=== PATIENT | female | born 1990 | race Hispanic/Latino ===

== ENCOUNTER 2022-05-07 12:24 | Emergency (ER) | payer OTHER ==
--- OUTSIDE RECORDS SUMMARY | 2022-05-07 12:27 | XMS REPORT | Continuity of Care Document ---
:1990 Author Organization [facility] t Address [address] [place] [address] Care Team Providers Name Role Phone HALI FOX Primary Care Physician Unavailable ELIZABETH FABIAN Attending Clinician Unavailable Enco Hsieh Attending Clinician Elizabeth Fabian PA-C Attending Clinician ENOC RAMIREZ Attending Clinician Unavailable Doctor Unassigned, [place] Attending Clinician Unavailable Beatriz Jin MD Attending Clinician Res-Colpo/Leep, [facility] Attending Clinician Unavailable Columba Short MD Attending Clinician COLUMBA SHORT Attending Clinician Unavailable HALI FOX Attending Clinician Unavailable Payers Payer Name Policy Type Policy Number Effective Date Expiration Date S liam [employer] [id number] 2022 2022 ELSI 101-150% 00:00:00 00:00:00 Problems Condition Condition Condition Status Onset Resolution Last Treating Co mments Source Name Details Category Date Date Treatment Clinician Date 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 03-31 ity of cell cell 00:00: [place] changes of changes of 00 Me dical undetermin undetermin Br anch ed ed significan significan ce (ASCUS) ce (ASCUS) on on cervical cervical cytology cytology with with positive positive high risk 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) Other Other Disease Active Univers general general 1-07 [place] of counseling [place] advice and advice 00 Me dical for for Branch contracept contracept chio chio management management Well woman Well woman Disease Active 2018-03 U nivers exam exam 0-02 ity of 00:00: [address] Branch Anemia, Anemia, Disease Active Univers 8-22 it y of 00:00: [address] Obesity Obesity Disease Active Univers (BMI (BMI 7-05 ity of 30-39.9) 30-39.9) 00:00: [place] [address] Medical Branch History of History of Disease Active U nivers tubal tubal 6-25 ity of ligation ligation 00:00: [address] Branch Dysplasia Dysplasia Disease Active Overview: Univers of cervix, of cervix, 1-15 Formattin ity of high grade high grade 00:00: g of this [place] CHICA 2 CHICA 2 00 note Medical might be Branch different from the original. CHICA III ASC-H10/2 11/2018 HGSIL and CHICA 212/5/201 9 LEEP- CHICA 2 + marginsNe eds colpo in 6 monthsNee ds annual pap smears Dermoid Dermoid Disease Active Univers cyst of cyst of 1-03 [place]y of left ovary [place] [facility] Allergies, Adverse Reactions, Alerts Allergy Allergy Status Severity Reaction(s) Onset Inactive Treating Comm ents Source Name Type Date Date Clinician NO KNOWN Drug Active Univers ALLERGIE Class ity of S [facility] Social History Social Habit Start Date Stop Date Quantity Comments Source Exposure to 2022-01-26 2022-02-05 Not sure [facility] SARS-CoV-2 00:00:00 08:57:00 [facility] (event) [place] Alcohol intake 2022-02-05 2022-02-05 .14 /d [facility] 00:00:00 00:00:[address] [facility] Tobacco use and 2022-02-05 2022-02-05 Smokeless tobacco Un iversity of exposure 00:00:00 00:00:00 non-user [facility] Sex Ass[birth year] At [birth year] Universit y of 00:00:00 00:00:[address] [facility] Smoking Status Start Date Stop Date Source Never smoked tobacco [facility] Medications Ordered Filled Start Stop Current Ordering Indication Dosage Frequency Signature Comments Components Source Medication Medication Date Date Medication? Clinician (SIG) Name Name paige Yes [id number] 240mg Take 1 U nivers calcium 240 8-22 capsule by it y of mg capsule 00:00: mouth [place] 00 daily as Medical needed for Branch Constipati on. ibuprofen Yes [id number] 600mg Take 1 Univers 600 mg 8-22 tablet by ity of tablet 00:00: mouth [place] 00 every 6 Medical (six) Branch hours as needed for Pain (scale 1-3) or Pain (scale 4-6) (Pain). Take with food or milk. Iron Fum & Yes [id number] 1{capsu Take 1 Univers P-FA-Vit B 8-22 le} capsule by ity of & C No.9 00:00: mouth [place] (INTEGRA 00 daily. Medical PLUS) 125 Branch mg iron- 1 mg Cap HYDROcodone Yes [id number] 1{tbl} Take 1 Univers -acetaminop 8-22 tablet by ity of hen 5-325 00:00: mouth [place] mg tablet 00 every 4 Medical (four) Branch hours as needed for Pain (scale 4-6) or Pain (scale 7-10). paige Yes [id number] 240mg Take 1 U nivers calcium 240 8-22 capsule by it y of mg capsule 00:00: mouth [place] 00 daily as Medical needed for Branch Constipati on. ibuprofen Yes [id number] 600mg Take 1 Univers 600 mg 8-22 tablet by ity of tablet 00:00: mouth [place] 00 every 6 Medical (six) Branch hours as needed for Pain (scale 1-3) or Pain (scale 4-6) (Pain). Take with food or milk. Iron Fum & Yes [id number] 1{capsu Take 1 Univers P-FA-Vit B 8-22 le} capsule by ity of & C No.9 00:00: mouth [place] (INTEGRA 00 daily. Medical PLUS) 125 Branch mg iron- 1 mg Cap HYDROcodone Yes [id number] 1{tbl} Take 1 Univers -acetaminop 8-22 tablet by ity of hen 5-325 00:00: mouth [place] mg tablet 00 every 4 Medical (four) Branch hours as needed for Pain (scale 4-6) or Pain (scale 7-10). docusate Yes [id number] 240mg Take 1 U nivers calcium 240 8-22 capsule by it y of mg capsule 00:00: mouth [place] 00 daily as Medical needed for Branch Constipati on. ibuprofen Yes [id number] 600mg Take 1 Univers 600 mg 8-22 tablet by ity of tablet 00:00: mouth [place] 00 every 6 Medical (six) Branch hours as needed for Pain (scale 1-3) or Pain (scale 4-6) (Pain). Take with food or milk. Iron Fum & Yes [id number] 1{capsu Take 1 Univers P-FA-Vit B 8-22 le} capsule by ity of & C No.9 00:00: mouth [place] (INTEGRA 00 daily. Medical PLUS) 125 Branch mg iron- 1 mg Cap HYDROcodone Yes [id number] 1{tbl} Take 1 Univers -acetaminop 8-22 tablet by ity of hen 5-325 00:00: mouth [place] mg tablet 00 every 4 Medical (four) Branch hours as needed for Pain (scale 4-6) or Pain (scale 7-10). docusate Yes [id number] 240mg Take 1 U nivers calcium 240 8-22 capsule by it y of mg capsule 00:00: mouth [place] 00 daily as Medical needed for Branch Constipati on. ibuprofen Yes [id number] 600mg Take 1 Univers 600 mg 8-22 tablet by ity of tablet 00:00: mouth [place] 00 every 6 Medical (six) Branch hours as needed for Pain (scale 1-3) or Pain (scale 4-6) (Pain). Take with food or milk. Iron Fum & Yes [id number] 1{capsu Take 1 Univers P-FA-Vit B 8-22 le} capsule by ity of & C No.9 00:00: mouth [place] (INTEGRA 00 daily. Medical PLUS) 125 Branch mg iron- 1 mg Cap HYDROcodone Yes [id number] 1{tbl} Take 1 Univers -acetaminop 8- tablet by ity of hen 5-325 00:00: mouth [place] mg tablet 00 every 4 Medical (four) Branch hours as needed for Pain (scale 4-6) or Pain (scale 7-10). docusate 2021- No [id number] 240mg Take 1 Univers calcium 240 -18 02- capsule by i ty of mg capsule 00:00: 00:00 mouth once [place] 00 :00 daily as Medical needed for Branch Constipati on. ibuprofen 2021- No [id number] 600mg Take 1 Univers 600 mg 8-18 02- tablet by ity of tablet 00:00: 00:00 mouth [place] 00 :00 every 6 Medical (six) Branch hours as needed for Pain (scale 1-3) or Pain (scale 4-6) (Pain). Take with food or milk. Iron Fum & 2021- No [id number] 1{capsu Take 1 Univers P-FA-Vit B -02-05 le} capsule by it y of & C No.9 00:00: 00:00 mouth [place] (INTEGRA 00 :00 daily. Medical PLUS) 125 Branch mg iron- 1 mg Cap HYDROcodone 2021- No [id number] 1{tbl} Take 1 Univers -acetaminop -18 02- tablet by it y of hen 5-325 00:00: 00:00 mouth [place] mg tablet 00 :00 every 4 Medical (four) Branch hours as needed for Pain (scale 4-6) or Pain (scale 7-10). docusate 2021- No [id number] 240mg Take 1 Univers calcium 240 11-18 capsule by i ty of mg capsule 00:00: 00:00 mouth once [place] 00 :00 daily as Medical needed for Branch Constipati on. ibuprofen 2021- No [id number] 600mg Take 1 Univers 600 mg 8-18 02- tablet by ity of tablet 00:00: 00:00 mouth [place] 00 :00 every 6 Medical (six) Branch hours as needed for Pain (scale 1-3) or Pain (scale 4-6) (Pain). Take with food or milk. Iron Fum & 2021- No [id number] 1{capsu Take 1 Univers P-FA-Vit B 8-22 11-09 le} capsule by it y of & C No.9 00:00: 00:00 mouth [place] (INTEGRA 00 :00 daily. Medical PLUS) 125 Branch mg iron- 1 mg Cap HYDROcodone 2021- No [id number] 1{tbl} Take 1 Univers -acetaminop 11-18 tablet by it y of hen 5-325 00:00: 00:00 mouth [place] mg tablet 00 :00 every 4 Medical (four) Branch hours as needed for Pain (scale 4-6) or Pain (scale 7-10). Immunizations Ordered Filled Immunization Date Status Comments [facility] e Immunization Name Name TDAP (ADACEL) 2018-09-21 Completed University of VACCINE 00:00:[address] [facility] TDAP (ADACEL) 2018-09-21 Completed University of VACCINE 00:00:[address] [facility] TDAP (ADACEL) 2018-09-21 Completed University of VACCINE 00:00:[address] [facility] TDAP (ADACEL) 2018-09-21 Completed University of VACCINE 00:00:[address] [facility] TDAP (ADACEL) 2018-09-21 Completed University of VACCINE 00:00:[address] [facility] TDAP (ADACEL) 2018-09-21 Completed University of VACCINE 00:00:[address] [facility] TDAP 2015-01-16 Completed University of 00:00:[address] [facility] TDAP 2015-01-16 Completed University of 00:00:[address] [facility] TDAP 2015-01-16 Completed University of 00:00:[address] [facility] TDAP 2015-01-16 Completed University of 00:00:[address] [facility] TDAP 2015-01-16 Completed University of 00:00:[address] [facility] TDAP 2015-01-16 Completed University of 00:00:[address] [facility] Rubella 2013-05-15 Completed University of 00:00:[address] [facility] Rubella 2013-05-15 Completed University of 00:00:[address] [facility] Rubella 2013-05-15 Completed University of 00:00:[address] [facility] Rubella 2013-05-15 Completed University of 00:00:[address] [facility] Rubella 2013-05-15 Completed University of 00:00:[address] [facility] Rubella 2013-05-15 Completed University of 00:00:[address] [facility] Td 2005-08-04 Completed University of 00:00:00 [place] [facility] Td 2005-08-04 Completed University of 00:00:00 [place] [facility] Td 2005-08-04 Completed University of 00:00:00 [place] [facility] Td 2005-08-04 Completed University of 00:00:00 [place] [facility] Td 2005-08-04 Completed University of 00:00:00 [place] [facility] Td 2005-08-04 Completed University of 00:00:[address] [facility] Vital Signs Vital Name Observation Time Observation Value Comments Source Systolic blood 2022-02-05 14:56:00 120 mm[Hg] Univer sity of pressure [facility] Diastolic blood 2022-02-05 14:56:00 79 mm[Hg] Unive rsity of pressure [facility] Heart rate 2022-02-05 14:56:00 68 /min Universi ty of [facility] Body temperature 2022-02-05 14:56:00 36 Ramila Univ ersity of [facility] Respiratory rate 2022-02-05 14:56:00 16 /min Univ ersity of [facility] Body height 2022-02-05 14:56:00 157.5 cm Universi ty of [place] [facility] Body weight 2022-02-05 14:56:00 89.449 kg Universi ty of [place] [facility] BMI 2022-02-05 14:56:00 36.07 kg/m2 Universi ty of [place] [facility] [place] Systolic blood 2021-01-29 15:02:00 119 mm[Hg] Univer sity of pressure [place] [facility] Diastolic blood 2021-01-29 15:02:00 69 mm[Hg] Unive rsity of pressure [facility] Heart rate 2021-01-29 15:02:00 66 /min Universi ty of [place] [facility] Body temperature 2021-01-29 15:02:00 36.56 Ramila Univ ersity of [facility] Body height 2021-01-29 15:02:00 157.5 cm Universi ty of [place] [facility] Body weight 2021-01-29 15:02:00 93.532 kg Universi ty of [place] [facility] BMI 2021-01-29 15:02:00 37.71 kg/m2 Universi ty of [place] [facility] [place] Procedures Procedure Date / Time Performed Performing Clinician [facility] e ASSIGNMENT OF BENEFITS 2022-02-05 14:33:49 Doctor Unassigned, No [facility] POCT TEST 2021-01-29 15:04:00 Columba Short [facility] Encounters Start End Encounter Admission Attending Care Care Encounter Source Date/Time Date/Time Type Type Clinicians Facility Department ID 2022-02-05 2022-02-05 [facility] [id number] Univers 08:30:00 09:42:18 [facility] 2022-02-05 2022-02-05 [facility] [id number] Univers 08:30:00 09:42:18 Visit Edmund Fabianrielle HEALTH [id number] ity [place] [id number] [address] 2022-02-05 2022-02-05 [facility] [id number] Univers 08:00:00 09:06:01 [facility] 2022-02-05 2022-02-05 Orders Doctor MELODY [id number] Univers 00:00:00 00:00:00 Only Unassigned, VIJAYA [id number] [facility] 4.2.7.2.686 [place] [id number] [address] 2021-02-14 2021-02-14 Case Paul [facility] [place] [facility] [id number] Univers 00:00:00 00:00:00 Management Enoc Y HEALTH [id number] ity of [id number] [id number] [facility] [address] [place] 2021-02-01 2021-02-01 Sunny Jin [facility] [place] [facility] [id number] Univers 00:00:00 00:00:00 Beatriz Y HEALTH [id number] i ty of [place] 4[place] [id number] [facility] 113 Branch 2021-01-29 2021-01-29 Office [facility]po[facility] UNIVER[facility] T [id number] Univers 09:38:48 10:45:29 Visit Columba Short Y HEALTH [id number] ity [place] [id number] [address] 2021-01-29 2021-01-29 [facility] [id number] Univers 08:30:00 10:45:29 COLUMBA ity [facility] [place] 2021-01-29 2021-01-29 [facility] [id number] Univers 08:30:00 10:45:29 COLUMBA ity [facility] [place] 2021-01-29 2021-01-29 Outpatient R HAN, [facility] [id number] Univers 08:00:00 09:59:15 COLUMBA ity [facility] [place] 2021-01-29 2021-01-29 Outpatient R HAN [facility] [id number] Univers 08:30:00 08:30:00 COLUMBA ity [facility] [place] 2021-01-29 2021-01-29 Orders Doctor MELODY [id number] Univers 00:00:00 00:00:00 Only Unassigned, VIJAYA 350.1.13.10 ity of [place] [facility] 4.2.7.2.686 [place] [id number] [address] 2020-12-07 2020-12-07 Orders Doctor MELODY [id number] Univers 00:00:00 00:00:00 Only Unassigned, VIJAYA 350.1.13.10 ity of [place] [facility] 4.2.7.2.686 [place] [id number] [address] 2020-11-01 2020-11-01 EMIL Harman [id number] Univers 00:00:00 00:00:00 Management Enoc Y HEALTH [id number] ity [id number] [id number] [address] 2020-10-18 2020-10-18 Outpatient R [facility] [id number] Univers 10:00:00 10:00:00 [facility] 2020-01-04 2020-01-04 Outpatient R RUDDY, [facility] [id number] Univers 09:00:00 09:00:00 HALI dylancorrie o f [facility] 2019-09-27 2019-09-27 Outpatient R [facility] [id number] Univers 08:30:00 08:30:00 [facility] 2019-09-06 2019-09-06 Outpatient R [facility] [id number] Univers 10:00:00 10:00:00 [facility] Results Test Description Test Time Test Comments Results Result Comments Source POCT TEST 2021-01-29 15:04:00 Test Item Value Reference Range Interpretation Comme nts POCT PREG (test code = 1605) Negative On board controls acceptable with C Line (test code = 3574) Yes POCT PREG LOT # (test code = 3575) POCT PREG TEST DATE (test code = 3576) Lab Interpretation (test code = 17260-4) Normal [facility]
[2022-05-07 13:58] LABS: Urine Blood 3+ (Negative); Urine Glucose Negative (Negative); Urine Protein Negative (Negative)
--- NOTE | 2022-05-07 14:19 | RAD REPORT ---
EXAM DESCRIPTION: RAD - Lumbar Spine 3 Views - 05/07/2022 2:05 pm CLINICAL HISTORY: LOWER BACK PAIN Radiculopathy COMPARISON: No comparisons FINDINGS: Vertebral body heights appear maintained. No compression fracture noted. Disc spaces are m aintained. No spondylolysis or spondylolisthesis. IMPRESSION: Negative study.
--- NOTE | 2022-05-07 14:20 | RAD REPORT ---
EXAM DESCRIPTION: RAD - Sacrum And Coccyx - 05/07/2022 2:05 pm CLINICAL HISTORY: LOWER BACK PAIN COMPARISON: Lumbar Spine 3 Views dated 05/07/2022 FINDINGS: Symmetric sacroiliac joints are normal. Sacrum/coccyx has a normal appearance. IMPRESSION: Negative study.
--- NOTE | 2022-05-07 14:26 | ER ---
Nurse's Notes [facility] Name: Yaneth Valladares Age: 31 yrs Sex: Female : 1990 Arrival Date: 05/07/2022 Time: 12:28 Bed 12 Private MD: Diagnosis: Contusion of lower back and pelvis;Muscle spasm of back Presentation: 05/07 12:38 Chief complaint: Patient states: she fell on Thursday, onto tile. Patient states she fell ap3 from standing onto her bottom. patient states that her pain has increased since the fall occurred. Coronavirus screen: At this time, the client does not indicate any symptoms associated with coronavirus-19. Ebola Screen: No symptoms or risks identified at this time. Initial Sepsis Screen: Does the patient meet any 2 criteria? No. Patient's initial sepsis screen is negative. Does the patient have a suspected source of infection? No. Patient's initial sepsis screen is negative. Risk Assessment: Do you want to hurt yourself or someone else? Patient reports no desire to harm self or others. Onset of symptoms was May 05, 2022. 12:38 Method Of Arrival: Ambulatory ap3 12:38 Acuity: ELIJAH 4 ap3 Triage Assessment: 12:42 General: Appears uncomfortable, Behavior is calm, cooperative. Pain: Complains of pain ap3 in coccyx Pain radiates to back Pain began gradually, 2-3 days ago. Neuro: Level of Consciousness is awake, alert, obeys commands, Oriented to person, place, time, situation. Cardiovascular: Patient's skin is warm and dry. Respiratory: Airway is patent Respiratory effort is even, unlabored, Respiratory pattern is regular, symmetrical. 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 - Social history:: Smoking status: Patient denies any tobacco usage or history of. Screenin:43 [facility] ED Fall Risk Assessment (Adult) History of falling in the last 3 months, ap3 including since admission Yes- single mechanical fall (1 pt). Abuse screen: Denies threats or abuse. Nutritional screening: No deficits noted. Tuberculosis screening: No symptoms or risk factors identified. Assessment: 13:59 Reassessment: Patient and/or family updated on plan of care and expected duration. Pain ap3 level reassessed. Patient is alert, oriented x 3, equal unlabored respirations, skin warm/dry/pink. Vital Signs: 12:38 BP 128 / 75; Pulse 84; Resp 17; Temp 98.4; Pulse Ox 100% ; Weight 88.45 kg; ap3 ED Course: 12:28 Patient arrived in ED. am2 12:28 Kyler Pruitt NP is PHCP. pm1 12:28 Oli Valentin DO is Attending Physician. pm1 12:42 Triage completed. ap3 12:43 Arm band placed on left wrist. ap3 12:43 Patient has correct armband on for positive identification. Bed in low position. Call ap3 light in reach. Adult w/ patient. Pulse ox on. NIBP on. 13:46 Kalina Sellers, RN is Primary Nurse. ap3 14:06 Lumbar Spine (3 Views) XRAY In Process Unspecified. EDMS 14:06 Sacrum And Coccyx XRAY In Process Unspecified. EDMS 14:38 No provider procedures requiring assistance completed. Patient did not have IV access jl7 during this emergency room visit. Administered Medications: 14:38 Drug: Flexeril (cyclobenzaprine) 10 mg Route: PO; jl7 14:38 Follow up: Response: Medication administered at discharge. jl7 Medication: 12:43 VIS not applicable for this client. ap3 Outcome: 14:24 Discharge ordered by . pm1 14:38 Discharged to home ambulatory. jl7 14:38 Condition: stable 14:38 Discharge instructions given to patient, Instructed on discharge instructions, follow up and referral plans. medication usage, Demonstrated understanding of instructions, follow-up care, medications, Prescriptions given X 1. 14:39 Patient left the ED. jl7 Signatures: Dispatcher [employer] EDMS Kyler Pruitt NP SERVICE CENTER TECHNICIAN pm1 Wilbert Parekh RN RN jl7 Kalina oGdoy am2 Kalina Sellers RN RN ap3
--- NOTE | 2022-05-07 14:26 | EDPHYS ---
Physician Documentation [facility] Name: Yaneth Valladares Age: 31 yrs Sex: Female : 1990 Arrival Date: 05/07/2022 Time: 12:28 Bed 12 Private MD: ED Physician Oli Valentin HPI: 05/07 12:43 This 31 yrs old Female presents to ER via Ambulatory with complaints of Fall pm1 Injury, Back Pain. 12:43 Details of fall: The patient fell from an upright position, while standing. Onset: The pm1 symptoms/episode began/occurred yesterday. Associated injuries: The patient sustained injury to the low back, coccyx. Severity of symptoms: in the emergency department the symptoms have improved, markedly, Patient reports unable to get up and walk yesterday due to the pain but naproxen and topical ointment have helped. She is now able to stand up and walk and pain is primarily present with sitting and as she initiates standing from seated position. The patient has not experienced similar symptoms in the past. The patient has not recently seen a physician. Patient was attempting to put a box on the top shelf, she stood on a shelf and fell back words onto her buttocks.. 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 - Social history:: Smoking status: Patient denies any tobacco usage or history of. ROS: 12:43 Constitutional: Negative for fever, chills, and weight loss, Cardiovascular: Negative pm1 for chest pain, palpitations, and edema, Respiratory: Negative for shortness of breath, cough, wheezing, and pleuritic chest pain. 12:43 MS/Extremity: Negative for injury and deformity, Skin: Negative for injury, rash, and discoloration. 12:43 Neuro: Negative for headache, weakness, numbness, tingling, and seizure. 12:43 Back: Positive for of the lumbar area and coccyx, pain. 12:43 All other systems are negative. Exam: 12:43 Constitutional: This is a well developed, well nourished patient who is awake, alert, pm1 and in no acute distress. Head/Face: Normocephalic, atraumatic. 12:43 Skin: Warm, dry with normal turgor. Normal color with no rashes, no lesions, and no evidence of cellulitis. MS/ Extremity: Pulses equal, no cyanosis. Neurovascular intact. Full, normal range of motion. 12:43 Eyes: Exam is negative for acute changes, Periorbital structures: no acute changes, Extraocular movements: no acute changes, Conjunctiva: no acute changes, no injection. 12:43 ENT: Exam is negative for acute changes, Mouth: no acute changes, Lips: normal, moist, Oral mucosa: normal, pink and intact, moist. 12:43 Cardiovascular: Exam negative for acute changes, Rate: normal, Rhythm: regular, Pulses: no pulse deficits are appreciated. 12:43 Respiratory: Exam negative for acute changes, respiratory distress, shortness of breath. 12:43 Abdomen/GI: Inspection: abdomen appears normal, Palpation: abdomen is soft and non-tender, in all quadrants. 12:43 Back: pain, that is mild, of the lumbar area and sacrum. 12:43 Neuro: Exam negative for acute changes, Orientation: is normal, Mentation: is normal, Motor: is normal. Vital Signs: 12:38 BP 128 / 75; Pulse 84; Resp 17; Temp 98.4; Pulse Ox 100% ; Weight 88.45 kg; ap3 MDM: 12:29 Patient medically screened. pm1 12:43 ED course: Patient refused pain medications because the naproxen she took at home has pm1 been effective today, it was not effective yesterday. 14:22 Data reviewed: vital signs. pm1 14:22 Differential diagnosis: contusion, fracture, muscle spasm, disc herniation. pm1 14:22 Counseling: I had a detailed discussion with the patient and/or guardian regarding: the pm1 historical points, exam findings, and any diagnostic results supporting the discharge/admit diagnosis, radiology results, the need for outpatient follow up, to return to the emergency department if symptoms worsen or persist or if there are any questions or concerns that arise at home. 05/07 13:59 Order name: Urine Dipstick-Ancillary; Complete Time: 14:01 EDMS 05/07 12:43 Order name: Lumbar Spine (3 Views) XRAY; Complete Time: 14:22 pm1 05/07 12:43 Order name: Sacrum And Coccyx XRAY; Complete Time: 14:22 pm1 05/07 12:43 Order name: Urine Dipstick-Ancillary (obtain specimen); Complete Time: 13:58 pm1 05/07 12:43 Order name: Urine Test (obtain specimen); Complete Time: 13:58 pm1 Administered Medications: 14:38 Drug: Flexeril (cyclobenzaprine) 10 mg Route: PO; jl7 14:38 Follow up: Response: Medication administered at discharge. jl7 Disposition: 18:51 Co-signature as Attending Physician, Oli Valentin DO I was immediately available on-site ms3 in the Emergency Department for consultation in the care of the patient. Disposition Summary: 05/07/22 14:24 Discharge Ordered Location: Home pm1 Problem: new pm1 Symptoms: have improved pm1 Condition: Stable pm1 Diagnosis - Contusion of lower back and pelvis pm1 - Muscle spasm of back pm1 Followup: pm1 - With: Emergency Department - When: As needed - Reason: Worsening of condition Followup: pm1 - With: Private Physician - When: 2 - 3 days - Reason: Recheck today's complaints, Continuance of care, Re-evaluation by your physician Discharge Instructions: - Discharge Summary Sheet pm1 - Contusion pm1 - Tailbone Injury pm1 - Back Injury Prevention, [id number] pm1 - Low Back Sprain or Strain Rehab-SportsMed pm1 Forms: - Medication Reconciliation Form pm1 - Thank You Letter pm1 - Antibiotic Education pm1 - Prescription Opioid Use pm1 - Work release form pm1 Prescriptions: - Cyclobenzaprine 10 mg Oral Tablet - take 1 tablet by ORAL route every 8 hours As needed; 30 tablet; Refills: 0, pm1 Product Selection Permitted - Diclofenac Sodium 75 mg Oral tablet,delayed release (DR/EC) - take 1 tablet by ORAL route 2 times per day As needed; 30 tablet; Refills: 0, pm1 Product Selection Permitted Signatures: Dispatcher [employer] EDKyler Tejeda NP DUMPLING MACHINE OPERATOR pm1 Wilbert Parekh RN RN jl7 Kalina Sellers RN RN ap3 Oli Valentin DO DO ms3
[2022-05-07] MEDS ORDERED: CYCLOBENZAPRINE 10 MG TAB ONE (14:36)
[2022-05-07 15:08] VITALS: BP 128/75; TEMP 98.4; O2SAT 100
== END 2022-05-07 14:39 | disposition home or self-care (01) ==
LOC: ER 12:24
DX: S30.0XXA Contusion of lower back and pelvis, initial encounter (principal); M62.830 Muscle spasm of back
CPT/HCPCS: 72100; 72220; 81003